=== PATIENT | male | born 1995 | race Caucasian/White ===

== ENCOUNTER 2022-09-30 06:30 | Emergency (ER) | payer SELFPAY ==
--- NOTE | ~2022-09-30 | XR_ITS ---
EXAMINATION: XR CHEST CLINICAL INFORMATION: Productive cough COMPARISON: None available. TECHNIQUE: 2 views of the chest were obtained. FINDINGS: No significant abnormality is noted involving the heart, lungs, mediastinum, bony thorax or soft tissues. XR/XR chest 2V IMPRESSION: Unremarkable examination.
[2022-09-30 06:39] VITALS: BP 127/69; PULSE 81; RESP 16; TEMP 36.6; O2SAT 98; BMI 23.8
[2022-09-30 07:01] LABS: IDNOW Serial# 08D9AD1C; Strep A Nucleic Acid Positive (Negative)
--- NOTE | 2022-09-30 07:25 | ED.GENADULT ---
HPI - General Adult General Chief complaint: General Medical Stated complaint: Sore throat Time Seen by Provider: 09/30/22 07:13 Source: patient, RN notes reviewed and old records reviewed Mode of arrival: ambulatory History of Present Illness HPI narrative: 27-year-old male with no significant past medical history presenting to the ED complaining sore throat, painful swallowing, and productive cough x1 week. Reports subjective fevers initially, resolved at present. Denies ear pain, inability to swallow, CP/SOB, sick contacts, recent travel Onset (ago): week(s) Related Data Previous Rx's Medication Instructions Recorded penicillin V potassium 500 mg 500 mg PO BID 10 days #20 tabs 09/30/22 tablet Allergies Allergy/AdvReac Type Severity Reaction Status Date / Time No Known Allergies Allergy Verified 09/30/22 07:42 Review of Systems Review of Systems: Constitutional: No Weight loss, No Fever, No Chills ENT/Mouth: No Ear Pain, No Nasal Congestion, No Sinus Pain, No Hoarseness, + sore throat, No Rhinorrhea, No Swallowing Difficulty Cardiovascular: No Chest Pain, No SOB Respiratory: + Cough, + Sputum, No Wheezing Gastrointestinal: No Nausea, No Vomiting, No Diarrhea, No Constipation, No Abdominal pain Musculoskeletal: No joint pain, No Myalgias Skin: No Skin Lesions, No rash Neuro: No Weakness Yes all other systems are reviewed and are negative Constitutional: Constitutional: Reports as per [facility] Past Medical History Attestation statement: The following information was validated with the patient. Source: old records reviewed Social History Social History Advance Directives: No Advance Directives Information Provided: Yes Physical Exam ED Vital Signs: Vital Signs - 24 hr 09/30/22 06:39 09/30/22 07:31 Temperature 98 F 97.8 F Pulse Rate 81 77 Respiratory Rate 16 16 Blood Pressure 127/69 119/78 Pulse Oximetry 98 99 Oxygen Delivery Method Room Air Room Air BMI result Body Mass Index 23.8 Const General: cooperative, healthy appearing and no acute distress Orientation/consciousness: patient oriented x3 Limitations: no limitations HENMT Head: Yes normal to inspection and Yes atraumatic Ears: hearing grossly normal bilaterally, external ears normal, TM's normal bilaterally and mastoids normal General nose exam: Normal external nose present Face and sinus: Yes normal facial exam Throat: Yes uvula midline, No peritonsillar mass, Yes posterior oropharynx abnormal (Erythema with mild tonsillar swelling), No uvula laterally displaced and No uvular edema Eyes General: appearance normal, both eyes and all related structures EOM: EOMs intact bilaterally Neck Neck: Yes normal visual inspection, Yes no meningeal signs, Yes supple and No anterior neck swelling Resp Effort & Inspection: normal respiratory effort, no respiratory distress and no stridor Auscultation: clear to auscultation bilaterally, no crackles, no rales and no wheezes Cardio Rate: regular rate Heart sounds: S1 normal heart sound present and S2 normal heart sound present Skin Rashes: no rashes Wounds: no wounds Neuro General: patient oriented x3, tone normal and no meningeal signs Gait exam (Neuro): Normal gait present Extrem General: Yes normal to inspection Course Course Course Narrative: -748--rapid strep positive -817--chest x-ray unremarkable Results discussed with patient including worrisome signs and symptoms and strict return precautions, and when to return to the emergency department. They verbalized understanding and feel safe for discharge at this time. Medical Decision Making Medical Decision Making MDM Narrative: 27-year-old male with no significant past medical history presenting to the ED complaining sore throat, painful swallowing, and productive cough x1 week. On exam vital signs stable, NAD, nontoxic appearing, no stridor, talking in complete sentences, no respiratory distress on the posterior or plantar erythema with mild tonsillar swelling noted, no exudates, no uvular deviation, lungs CTA. Concern for viral illness vs strep pharyngitis vs bronchitis or pneumonia. Plan: CXR, rapid strep Please refer to course for remaining clinical decision making, interpretation of labs/imaging results, and discussions with consultants and/or family members. Differential Diagnosis Differential Diagnoses: The differential diagnosis associated with the presentation includes As above Admission/Observation Consideration of admission/observation: Escalation of care including admission/observation considered Lab Data [facility] Lab Attestation statement: I reviewed the patient's lab results. Labs: Lab Results 09/30/22 Range/Units 06:46 S. pyogenes GrpA DEENA Positive A (Negative) Radiology Impression Discussion of test interpretation with radiology: I have reviewed the radiologist's reading. External Record Review External record reviewed: Inpatient record, Office record, Outpatient record, Prior outpatient labs, Prior outpatient radiology, Primary care record and Outside ED record Tests considered The following testing was considered but not selected: As above Discharge Plan Discharge Clinical Impression: Acute streptococcal pharyngitis Patient Disposition: Home, Self-Care Instructions: Strep Throat (DC) Additional Instructions: You have strep throat. Penicillin V antibiotic please take as prescribed Gargle with warm salt water Take Tylenol Motrin as needed If symptoms persist or worsen you develop fevers, difficulty or inability to swallow, or shortness of breath return to the ED Tienes faringitis estreptoc?cica. Antibi?timmy de penicilina V, t?lawson seg?n lo prescrito. Megan g?rgaras con agua tibia con andrzej [employer] [place] Tylenol Motrin seg?n sea necesario Si los s?ntomas persisten o empeoran, presenta fiebre, dificultad o incapacidad para tragar o dificultad para respirar, regrese al servicio de urgencias. Prescriptions: New penicillin V potassium 500 mg tablet 500 mg PO BID 10 Days Qty: 20 0RF Referrals: Physician,None [Primary Care Provider] - Stand Alone Forms: Work/School Release Interventions: ED Discharge Assessment Last Done: 09/30/22 08:33 Discharge Date/Time: 09/30/22 08:33 Print Language: [place]uran
[2022-09-30 07:31] VITALS: BP 119/78; PULSE 77; RESP 16; TEMP 36.6; O2SAT 99
== END 2022-09-30 08:33 | disposition home or self-care (01) ==
PROVIDERS: Emergency Provider Emergency Medicine
DX: J02.0 Streptococcal pharyngitis (principal); Z20.828 Contact with and (suspected) exposure to other viral communicable diseases; Z20.822 Contact with and (suspected) exposure to COVID-19
CPT/HCPCS: 71046; 87651; 99283; 99284

== ENCOUNTER 2025-01-10 08:37 | Emergency (ER) | payer SELFPAY ==
[2025-01-10 08:42] VITALS: BP 134/73; PULSE 79; RESP 16; TEMP 36.4; O2SAT 97; BMI 25.0
[2025-01-10 10:59] VITALS: BP 140/92; PULSE 70; RESP 16; TEMP 36.6; O2SAT 99
--- NOTE | 2025-01-10 11:01 | ED_ITS ---
HPI - General Adult General Chief complaint: Neck Pain/Injury Stated complaint: Neck pain 2 days Time Seen by Provider: 01/10/25 10:47 Source: patient, RN notes reviewed, old records reviewed and staff interpreter Mode of arrival: ambulatory Limitations: language barrier History of Present Illness ED Provider: Eduard HPI narrative: Patient is a 29-year-old [place]-speaking male presenting to the emergency department with complaint of 3 weeks of right-sided neck and shoulder pain. He denies any fall or other traumatic injury. States that he was using a topical cream which improved his symptoms, then they returned a few days ago. Denies any fevers. Denies any radiation of pain or paresthesias to right arm. States his pain does worsen when he lifts his right arm. MD complaint: neck pain Onset (ago): week(s) Related Data Previous Rx's ?Medication ?Instructions ?Recorded penicillin V potassium 500 mg 500 mg PO BID 10 days #2 0 tabs 09/30/22 tablet cyclobenzaprine 10 mg tablet 10 mg PO TID PRN muscle s pasm #10 01/10/25 tabs lidocaine 5 % topical patch 1 patch topical DAILY #15 ea 01/10/25 Allergies Allergy/AdvReac Type Severity Reaction Status Date / Time No Known Allergies Allergy Verified 01/10/25 08:44 Review of Systems Review of Systems: as per hpi Yes all other systems are reviewed and are negative Constitutional: Constitutional: Reports as per HPI [facility] Social History Social History Smoked in Last 30 Days: Yes Use of substances other than those prescribed or required for medical reasons: No Advance Directives: No Advance Directives Information Provided: Yes Physical Exam ED Vital Signs: Vital Signs - 24 hr 01/10/25 08:42 01/10/25 10:59 Temperature 97.5 F 97.8 F Pulse Rate 79 70 Respiratory Rate 16 16 Blood Pressure 134/73 140/92 H Pulse Oximetry 97 99 Oxygen Delivery Method Room Air Room Air BMI result Body Mass Index 25.0 Vital signs have been reviewed and appear to be correct. Blood pressure normal. Heart rate normal. Respiratory rate normal. Temperature normal. Oxygen saturation normal. Const General: cooperative, healthy appearing and no acute distress Orientation/consciousness: oriented to person, oriented to place, oriented to time and patient oriented x3 Limitations: no limitations [facility] Head: Yes normocephalic and Yes atraumatic Ears: external ears normal General nose exam: Normal external nose present Face and sinus: Yes face symmetric Mouth: oropharynx normal and moist mucous membranes Throat: Yes uvula midline Eyes Pupils: Equal, round and reactive pupils present Neck Neck: Yes normal visual inspection, Yes full ROM, Yes no lymphadenopathy, Yes no meningeal signs, Yes trachea midline, Yes supple, No anterior neck swelling and No torticollis Resp Effort & Inspection: normal respiratory effort and able to speak in complete sentences Auscultation: clear to auscultation bilaterally Cardio Rate: regular rate Rhythm: regular rhythm Heart sounds: S1 normal heart sound present and S2 normal heart sound present GI Palpation (GI): Soft to palpation and nontender Auscultation: normoactive bowel sounds General: Yes no CVA tenderness Back/Spine/Pelvis Back: no CVA tenderness Cervical Spine: normal cervical lordosis, cervical ROM normal, cervical muscular tenderness (right lateral), pain with cervical ROM, No Cervical spine tenderness and No step off deformity Skin General skin exam: elasticity normal and turgor normal Neuro General: oriented to person, oriented to place, oriented to time, patient orien mayelin x3, gait normal, tone normal, moves all extremities, Normal light touch and pain sensation, no meningeal signs, no focal motor deficits, CN's II-XI intact bilaterally and deep tendon reflexes 2+ bilaterally Cranial nerves: Yes Equal, round and reactive pupils present Cognition (Neuro): normal cognition Motor exam (neuro): 5/5 motor strength present throughout, Normal motor muscle tone present throughout and Motor abnormalities not present Extrem General: Yes full ROM, Yes no pedal edema and Yes no calf tenderness Right upper extremity: normal to inspection, full ROM and shoulder/upper arm (tenderness to palpation over trapezius) Psych Mental Status: mental status grossly normal Affect: normal affect Thought process: Normal thought process present Medications Administered Discontinued Medications Generic Name Dose Route Start Last Admin Trade Name Arvind PRN Reason Stop Dose Admin Diazepam 2 mg 01/10/25 11:10 01/10/25 11:19 Diazepam 2 Mg Tablet PO 01/10/25 11:11 2 mg ONCE ONE Administration Ketorolac Tromethamine 30 mg 01/10/25 11:10 01/10/25 11:19 Ketorolac Tromethamine 30 Mg/Ml Vial IM 01/10/25 11:11 30 mg ONCE ONE Administration Morphine Sulfate 4 mg 01/10/25 13:02 01/10/25 13:09 Morphine Sulfate 4 Mg/Ml Cartridge IM 01/10/25 13:03 4 mg ONCE ONE Administration Protocol Medical Decision Making Medical Decision Making [facility] Narrative: Patient is a 29-year-old [place]-speaking male presenting to the emergency department with complaint of 3 weeks of right-sided neck and shoulder pain. On exam patient is awake, A+Ox3, VS WNL, afebrile, normal neurological exam without focal deficits, physical exam findings as above. Given reported symptoms and physical exam findings, initial differential includes but is not limited to ce rvical strain, shoulder strain. Less likely cervical radiculopathy. Do not suspect vertebral fracture or subluxation. Will medicated with valium and toradol and reassess. Patient denies any relief from toradol and valium. Will try IM morphine. Patient reports good relief with morphine. Discussed taking Tylenol and ibuprofen once home. Will send prescription for flexeril and topical lidocaine patches. Patient states he does not currently have a PCP, will provide patient with resources. Discussed that he may require physical therapy to improve his symptoms. Return precautions discussed at bedside. Patient verbalized understanding of and agreement with plan. In-person sign language interpreter was utilized for all interactions, assessments, and discussions. Differential Diagnosis Differential Diagnoses: The differential diagnosis associated with the presentation includes as per [facility] Admission/Observation Consideration of admission/observation: Escalation of care including admission/observation considered Patient would have been admitted to the hospital and transferred to appropriate facility had their clinical presentation warranted hospital admission. External Record Review External record reviewed: Inpatient record, Office record and Outpatient record Critical Care Time Critical Care Time Critical Care Time: Yes Total Critical Care Time: 37 Attestation: I have personally provided critical care time exclusive of time spent on separa tely billable procedures. Time includes review of lab data, radiology results, discussion with consultants, and monitoring for potential decompensation. Intervention performed as documented. Discharge Plan Discharge Clinical Impression: Cervical strain Qualifiers: Encounter type: initial encounter Qualified Code(s): S16.1XXA - Strain of muscle, fascia and tendon at neck level, initial encounter Patient Disposition: Home, Self-Care Instructions: Cervical Strain (DC) Additional Instructions: You were evaluated in the emergency department with complaint of neck pain. Your imaging did not show any evidence of a fracture or other concerning findings. Your pain is likely related to a muscle strain. We recommend taking 600mg ibuprofen or 650mg Tylenol. If necessary, you can alternate these medications every three hours. For example, at noon take Tylenol, then at 3:00 take ibuprofen, then at 6:00 take Tylenol, etc. You are also being prescribed a muscle relaxer which you can use up to every 8 hours as needed. You are being prescribed topical lidocaine patches which you can wear for up to 12 hours in a 24 hour period. Do not apply heat over the patches. You should follow up with your primary care provider as you may require physical therapy to improve your symptoms. Return to the emergency department if you develop worsening neck pain or stiffness, new weakness, numbness, or tingling to your arm, severe headaches, or any other concerning symptoms. Prescriptions: New lidocaine 5 % adhesive patch,medicated 1 patch topical DAILY Qty: 15 0RF Rx Instructions: leave on most painful area for up to 12 hrs cyclobenzaprine 10 mg tablet 10 mg PO TID PRN (Reason: muscle spasm) Qty: 10 0RF No Action penicillin V potassium 500 mg tablet 500 mg PO BID 10 Days Qty: 20 0RF [place] [facility] [facility] [place], [place] [facility] [place] [facility] [Provider Group, Internal Medicine] [facility] [place] [facility] [place]Provider Group, Internal Medicine] Print Language: [place]
--- NOTE | 2025-01-10 11:24 | PC.NURSE ---
patient a&ox3, c/o 01/20 neck discomfort which he previously had been medicating at home with some relief. denies injury. rr equal/non labored, vss, pt medicated for pain per order by travis RN, plan of care ongoing
--- OUTSIDE RECORDS SUMMARY | 2025-01-10 12:51 | XMS_ITS | Clinical Summary ---
Author Organization [employer] Address [address] [place] [address] Care Team Providers Care [employer] Freight Con[employer] Name Role Phone Unavailable Primary Care Provider Unavailabl e Social History Tobacco Use Types Packs/Day Years Used Date Smoking Tobacco: Never Assessed Sex and Gender Information Value Date Recorded Sex Assigned at Not on file Legal Sex Male 10:15 AM EST Gender Identity Not on file Sexual Orientation Not on file Plan of Treatment Health Maintenance Due Date Last Done Comments Depression Screening 1993 Disability Screening 1993 Alcohol/Substance Use Screening 2005 Tobacco Screening 2005 Family Planning (PISQ) 2008 HPV Vaccines (1 - Male 3-dos e series) 2008 DTaP/Tdap/Td Vaccines (1 - Tdap) 2012 Hepatitis B Vaccines (1 of 3 - 19+ 3-dose series) 2012 COVID-19 Vaccine (1 - 2023-2 5 season) 2024 Influenza Vaccine (#1) 2024 Zoster Vaccines (1 of 2) 2043 RSV Patients and Pa tients Aged 60 years or older (1 - 1-dose 75+ series) 2068 HIB Vaccines Aged Out No longer eligi ble based on patient's age to complete this topic Hepatitis A Vaccines Aged Out No long er eligible based on patient's age to complete this topic IPV Vaccines Aged Out No longer eligi ble based on patient's age to complete this topic Meningococcal B Vaccine Aged Out No l onger eligible based on patient's age to complete this topic Meningococcal Vaccine Aged Out No jm patience eligible based on patient's age to complete this topic Pneumococcal Vaccine: Pediat rics (0 to 5 Years) and At-Risk Patients (6 to 49) Years Aged Out No longer eligible b ased on patient's age to complete this topic RSV under 20 months Aged Out No longe r eligible based on patient's age to complete this topic Rotavirus Vaccines Aged Out No longer eligible based on patient's age to complete this topic
--- NOTE | 2025-01-10 13:10 | PC.NURSE ---
pt medicated for continued pain
[2025-01-10 14:37] VITALS: BP 138/88; PULSE 76; RESP 16; TEMP 36.7; O2SAT 98
== END 2025-01-10 14:37 | disposition home or self-care (01) ==
PROVIDERS: Emergency Provider Emergency Medicine
DX: S16.1XXA Strain of muscle, fascia and tendon at neck level, initial encounter (principal); X58.XXXA Exposure to other specified factors, initial encounter; Y93.9 Activity, unspecified; Y92.9 Unspecified place or not applicable
CPT/HCPCS: 96372; 99284; J1885; J2270